=== PATIENT | female | born 1985 | race Caucasian/White ===

== ENCOUNTER 2017-04-02 13:26 | Emergency (ER) | payer MEDICAID ==
[~2017-04-02] VITALS: Ht 154.9 cm; Wt 92.5 kg
[2017-04-02 16:01] VITALS: BP 123/71
== END 2017-04-02 16:01 | disposition home or self-care (01) ==
LOC: ED 13:26
DX: S29.9XXA Unspecified injury of thorax, initial encounter (principal); V49.9XXA Car occupant (driver) (passenger) injured in unspecified traffic accident, initial encounter; Y93.89 Activity, other specified; Y99.8 Other external cause status; Y92.89 Other specified places as the place of occurrence of the external cause
CPT/HCPCS: 72072

== ENCOUNTER 2017-08-07 22:33 | Emergency (ER) | payer MEDICAID ==
[~2017-08-07] VITALS: Ht 152.4 cm; Wt 65.8 kg
[2017-08-08 00:50] VITALS: BP 148/70
== END 2017-08-08 00:04 | disposition home or self-care (01) ==
LOC: ED 22:33
DX: L50.9 Urticaria, unspecified (principal)

== ENCOUNTER 2017-08-08 12:06 | Emergency (ER) | payer MEDICAID ==
[~2017-08-08] VITALS: Ht 154.9 cm; Wt 91.8 kg
[2017-08-08 12:16] VITALS: BP 126/65
== END 2017-08-08 14:19 | disposition home or self-care (01) ==
LOC: ED 12:06
DX: L30.9 Dermatitis, unspecified (principal)

== ENCOUNTER 2017-10-23 15:56 | Emergency (ER) | payer MEDICAID ==
[~2017-10-23] VITALS: Ht 154.9 cm; Wt 88.5 kg
[2017-10-23 16:18] VITALS: Ht 154.9 cm; Wt 88.5 kg
[2017-10-23 18:01] VITALS: BP 115/74
== END 2017-10-23 18:22 | disposition home or self-care (01) ==
LOC: ED 15:56
DX: B34.9 Viral infection, unspecified (principal)
CPT/HCPCS: J7613; J7644